=== PATIENT | male | born 1955 | race African-American/Black ===

== ENCOUNTER 2021-11-15 14:46 | Inpatient (IN) ==
[2021-11-15] MEDS ORDERED: AMIODARONE 150 MG/3 ML VIAL ONE ×2 (14:59→15:02)
[2021-11-15] MEDS ORDERED: MIDAZOLAM 10 MG/2 ML VIAL ONE (15:01)
[2021-11-15] MEDS ORDERED: MIDAZOLAM 50 MG/10 ML VIAL IV STA (15:05)
[2021-11-15] MEDS ORDERED: ROCURONIUM 50 MG/5 ML VIAL IV STA (15:05)
[2021-11-15] MEDS ORDERED: AMIODARONE INJ 450 MG in DEXTROSE 5% 241 ML IV SCH ×2 (15:10→21:00)
[2021-11-15] MEDS ORDERED: ETOMIDATE 20 MG/10 ML VIAL IV ONE ×2 (15:10→16:00)
[2021-11-15] MEDS ORDERED: AMIODARONE INJ 150 MG in DEXTROSE 5% 100 ML IV ONE ×3 (15:10→16:54)
[2021-11-15] MEDS ORDERED: ATROPINE 1 MG/10 ML SYRINGE ONE (15:14)
[2021-11-15] MEDS ORDERED: ATROPINE 1 MG/10 ML SYRINGE IV ONE ×3 (15:15→19:28)
[2021-11-15 15:31] LABS: Basophils # 0.1 10*3/uL (0.0-0.2); Basophils % 0.6 % (0.0-0.8); Eosinophils # 0.5 10*3/uL (0.0-0.87); Eosinophils % 3.7 % (0.00-10.9); Hematocrit 51.8 VOL% (42.0-52.0); Hemoglobin 16.5 GM/DL (14.0-18.0); Immature Granulocytes % 0.6 %; Immature Granulocytes Absolute 0.07 #; Lymphocytes # 4.8 10*3/uL (1.4-4.0); Lymphocytes % 38.4 % (21.2-54.2); Mean Corpuscular HGB Conc 31.9 GM/DL (32-36); Mean Corpuscular Volume 86.2 FL (87-102); Monocytes # 0.9 10*3/uL (0.11-0.8); Neutrophils % 49.7 % (38.7-73.9); Platelet Count 265 T/CUMM (130-400); Red Blood Count 6.01 MC/CUMM (3.8-5.5); Red Cell Distribution Width 16.7 % (9.3-17.3); White Blood Count 12.5 T/CUMM (4-12)
[2021-11-15] MEDS ORDERED: MAGNESIUM SULF RIDER 4 GM/100 ML PREMIX IV PRN (15:40)
[2021-11-15] MEDS ORDERED: MAGNESIUM SULF RIDER 2 GM/50 ML PREMIX IV PRN (15:40)
[2021-11-15] MEDS ORDERED: MAGNESIUM SULF RIDER 2 GM/50 ML PREMIX IV ONE (15:42)
[2021-11-15] MEDS ORDERED: POTASSIUM CHLORIDE RIDER 10 MEQ/100 ML PREMIX IV PRN (15:42)
[2021-11-15 15:44] LABS: Calcium 9.2 MG/DL (8.5-10.1); Osmolality,Calculated 281.4 MOS/KG (273-304); Potassium 3.9 MMOL/L (3.5-5.1)
[2021-11-15] MEDS ORDERED: ROCURONIUM 100 MG/10 ML VIAL IV ONE (16:00)
[2021-11-15] MEDS ORDERED: ENOXAPARIN 30 MG/0.3 ML SYRINGE ONE (16:14)
[2021-11-15] MEDS: SODIUM CHLORIDE 0.9% 1,000 ML IV SCH (16:15)
[2021-11-15] MEDS ORDERED: METOPROLOL TARTRATE 5 MG/5 ML VIAL IV ONE ×2 (16:16→18:31)
[2021-11-15] MEDS ORDERED: TIROFIBAN 5,000 MCG/100 ML PREMIX IV ONE (16:27)
[2021-11-15] MEDS: TIROFIBAN 5,000 MCG/100 ML PREMIX IV SCH ×3 (16:32→22:43)
[2021-11-15] MEDS ORDERED: SODIUM CHLORIDE 0.9% 1,000 ML IV STA (16:41)
[2021-11-15 16:46] LABS: Bacteria,Urine Occasional /HPF (Few); Hyaline Casts,Urine 14 /LPF (0-3); Mucus,Urine Occasional /LPF (Occasional); Squamous Epithelial Cell,Urine Occasional /HPF (0-10)
[2021-11-15 16:48] LABS: Bilirubin,Urine Negative (Negative); Blood, Urine Trace mg/dL (Negative); Glucose,Urine (UA) Negative (Negative); Ketones,Urine Negative (Negative); Nitrite,Urine Negative (Negative); Protein,Urine 100 mg/dL (Negative); Urine Appearance Clear (Clear); Urine Color Yellow (Yellow); Urine Specific Gravity 1.032 (1.001-1.035); Urine Urobilinogen 0.2 eU/dL (<2.0); Urine pH 5.5 (4.5-8.0)
[2021-11-15 17:02] LABS: Barbiturates Screen,Urine Negative (Negative); Benzodiazepines Screen,Urine Positive (Negative); Cannabinoid Screen,Urine Negative (Negative); Opiate Screen,Urine Negative (Negative); Phencyclidine Screen,Urine Negative (Negative)
[2021-11-15] MEDS ORDERED: ROCURONIUM 100 MG/10 ML VIAL IV STA (17:09)
[2021-11-15] MEDS: METOPROLOL TARTRATE 5 MG/5 ML VIAL IV SCH ×2 (18:35→18:43)
[2021-11-15 18:38] LABS: ABG Base Excess -4.2 MMOL/L (-2.5-2.5); ABG Oxygen Saturation 98.9 % (95-100); ABG TCO2 24.7 MMOL/L (23-27)
[2021-11-15 18:53] LABS: ABG PH 7.166 (7.35-7.45)
[2021-11-15 18:54] LABS: ABG PCO2 78.1 MM HG (35-48)
[2021-11-15] MEDS ORDERED: ALBUTEROL 2.5 MG/3 ML NEB RESP TX ONE (19:01)
[2021-11-15] MEDS ORDERED: MIDAZOLAM 100 MG in SODIUM CHLORIDE 0.9% 80 ML IV PRN (19:02)
[2021-11-15 19:49] LABS: ABG Base Excess -5.7 MMOL/L (-2.5-2.5); ABG HCO3 19.8 MMOL/L (20-26); ABG Oxygen Saturation 97.3 % (95-100); ABG PCO2 55.3 MM HG (35-48); ABG PH 7.232 (7.35-7.45); ABG TCO2 20.1 MMOL/L (23-27)
[2021-11-15] MEDS: METOPROLOL TARTRATE 25 MG TABLET PO SCH (20:48)
[2021-11-15] MEDS: ROSUVASTATIN 20 MG TABLET PO SCH (21:32)
[2021-11-15] MEDS ORDERED: NOREPINEPHRINE 8 MG in SODIUM CHLORIDE 0.9% 242 ML IV PRN (22:30)
[2021-11-16 03:25] LABS: ABG Base Excess -0.3 MMOL/L (-2.5-2.5); ABG HCO3 24.2 MMOL/L (20-26); ABG Oxygen Saturation 98.9 % (95-100); ABG PCO2 44.7 MM HG (35-48); ABG PH 7.365 (7.35-7.45); ABG TCO2 21.7 MMOL/L (23-27)
[2021-11-16 03:34] LABS: Basophils % 0.2 % (0.0-0.8); Eosinophils % 0.2 % (0.00-10.9); Hematocrit 47.2 VOL% (42.0-52.0); Hemoglobin 15.2 GM/DL (14.0-18.0); Immature Granulocytes Absolute 0.13 #; Lymphocytes % 15.5 % (21.2-54.2); Mean Corpuscular HGB Conc 32.2 GM/DL (32-36); Mean Corpuscular Volume 86.8 FL (87-102); Monocytes % 7.6 % (1.7-12.7); Neutrophils % 75.5 % (38.7-73.9); Platelet Count 243 T/CUMM (130-400); Red Blood Count 5.44 MC/CUMM (3.8-5.5); Red Cell Distribution Width 15.9 % (9.3-17.3); White Blood Count 13.1 T/CUMM (4-12)
[2021-11-16 03:53] LABS: Albumin 2.7 G/DL (3.4-5.0); Bilirubin,Total 0.4 MG/DL (0.20-1.00); Osmolality,Calculated 284.1 MOS/KG (273-304); Potassium 5.1 MMOL/L (3.5-5.1); Risk Ratio 3.09; Thyroid Stimulating Hormone 0.357 uIU/ml (0.358-3.74); Total Protein 5.7 G/DL (6.4-8.2); VLDL Cholesterol 23.2 MG/DL
[2021-11-16] MEDS: SODIUM CHLORIDE 0.9% 1,000 ML IV SCH ×3 (04:02→22:15)
[2021-11-16] MEDS: PANTOPRAZOLE 40 MG TABLET PO SCH (09:13)
[2021-11-16] MEDS: METOPROLOL TARTRATE 25 MG TABLET PO SCH ×2 (09:13→20:52)
[2021-11-16] MEDS: ASPIRIN EC 81 MG TABLET PO SCH (10:50)
[2021-11-16] MEDS ORDERED: ENOXAPARIN 40 MG/0.4 ML SYRINGE SUBCUT SCH (11:30)
[2021-11-16 12:23] LABS: Calcium 8.2 MG/DL (8.5-10.1); Osmolality,Calculated 281.4 MOS/KG (273-304); Potassium 4.4 MMOL/L (3.5-5.1)
[2021-11-16] MEDS: ENOXAPARIN 80 MG/0.8 ML SYRINGE SUBCUT SCH (15:13)
[2021-11-16] MEDS: AMIODARONE 200 MG TABLET PO SCH (20:52)
[2021-11-16] MEDS: ROSUVASTATIN 20 MG TABLET PO SCH (20:52)
[2021-11-17] MEDS: ENOXAPARIN 80 MG/0.8 ML SYRINGE SUBCUT SCH ×2 (01:37→14:30)
[2021-11-17 04:05] LABS: Arterial Base Excess iSTAT -1 MMOL/L (-2.5-2.5); Arterial Bicarbonate iSTAT 24.1 MMOL/L (20-26); Arterial O2 Saturation iSTAT 96 % (95-100); Arterial PCO2 iSTAT 42 MM HG (35-48); Arterial PO2 iSTAT 85 MM HG (80-95); Arterial Total CO2 iSTAT 25 MMO/L (23-27); Arterial pH iSTAT 7.371 (7.35-7.45)
[2021-11-17] MEDS ORDERED: ACETAMINOPHEN 325 MG TABLET PO PRN (04:16)
[2021-11-17 05:36] LABS: Basophils % 0.3 % (0.0-0.8); Eosinophils # 0.1 10*3/uL (0.0-0.87); Eosinophils % 0.5 % (0.00-10.9); Hematocrit 43.4 VOL% (42.0-52.0); Hemoglobin 13.8 GM/DL (14.0-18.0); Immature Granulocytes % 0.6 %; Immature Granulocytes Absolute 0.08 #; Lymphocytes # 1.6 10*3/uL (1.4-4.0); Lymphocytes % 11.5 % (21.2-54.2); Mean Corpuscular HGB Conc 31.8 GM/DL (32-36); Mean Corpuscular Volume 87.7 FL (87-102); Monocytes # 1.2 10*3/uL (0.11-0.8); Monocytes % 8.8 % (1.7-12.7); Neutrophils % 78.3 % (38.7-73.9); Platelet Count 210 T/CUMM (130-400); Red Blood Count 4.95 MC/CUMM (3.8-5.5); Red Cell Distribution Width 15.8 % (9.3-17.3); White Blood Count 13.6 T/CUMM (4-12)
[2021-11-17 05:57] LABS: Calcium 8.2 MG/DL (8.5-10.1); Osmolality,Calculated 283.1 MOS/KG (273-304)
[2021-11-17] MEDS ORDERED: DEXMEDETOMIDINE 200 MCG in SODIUM CHLORIDE 0.9% 48 ML IV PRN (08:00)
[2021-11-17] MEDS: AMIODARONE 200 MG TABLET PO SCH ×2 (09:10→20:19)
[2021-11-17] MEDS: ASPIRIN EC 81 MG TABLET PO SCH (09:10)
[2021-11-17] MEDS: METOPROLOL TARTRATE 50 MG TABLET PO SCH ×2 (09:10→20:19)
[2021-11-17] MEDS: PANTOPRAZOLE 40 MG TABLET PO SCH (09:10)
[2021-11-17] MEDS ORDERED: ALPRAZolam 0.5 MG TABLET PO PRN (09:17)
[2021-11-17] MEDS: SODIUM CHLORIDE 0.9% 1,000 ML IV SCH (11:35)
[2021-11-17] MEDS: ROSUVASTATIN 20 MG TABLET PO SCH (20:19)
[2021-11-18] MEDS: SODIUM CHLORIDE 0.9% 1,000 ML IV SCH ×2 (01:49)
[2021-11-18] MEDS: ENOXAPARIN 80 MG/0.8 ML SYRINGE SUBCUT SCH ×2 (03:43→13:20)
[2021-11-18 04:54] LABS: Basophils # 0.1 10*3/uL (0.0-0.2); Basophils % 0.5 % (0.0-0.8); Eosinophils # 0.2 10*3/uL (0.0-0.87); Eosinophils % 1.8 % (0.00-10.9); Hematocrit 39.9 VOL% (42.0-52.0); Hemoglobin 12.6 GM/DL (14.0-18.0); Immature Granulocytes % 0.7 %; Immature Granulocytes Absolute 0.09 #; Lymphocytes % 15.6 % (21.2-54.2); Mean Corpuscular HGB Conc 31.6 GM/DL (32-36); Mean Corpuscular Volume 88.5 FL (87-102); Mean Platelet Volume 10.4 FL (9.6-12.0); Monocytes # 1.2 10*3/uL (0.11-0.8); Monocytes % 9.3 % (1.7-12.7); Neutrophils % 72.1 % (38.7-73.9); Platelet Count 186 T/CUMM (130-400); Red Blood Count 4.51 MC/CUMM (3.8-5.5); Red Cell Distribution Width 15.7 % (9.3-17.3); White Blood Count 12.8 T/CUMM (4-12)
[2021-11-18 05:17] LABS: Calcium 8.4 MG/DL (8.5-10.1); Osmolality,Calculated 282.1 MOS/KG (273-304); Potassium 3.8 MMOL/L (3.5-5.1)
[2021-11-18] MEDS: METOPROLOL SUCCINATE XL 100 MG TABLET PO SCH (09:22)
[2021-11-18] MEDS: PANTOPRAZOLE 40 MG TABLET PO SCH (09:22)
[2021-11-18] MEDS: AMIODARONE 200 MG TABLET PO SCH (09:22)
[2021-11-18] MEDS: ASPIRIN EC 81 MG TABLET PO SCH (09:22)
[2021-11-18 09:47] LABS: Arterial Base Excess iSTAT 0 MMOL/L (-2.5-2.5); Arterial Bicarbonate iSTAT 26.4 MMOL/L (20-26); Arterial O2 Saturation iSTAT 96 % (95-100); Arterial PCO2 iSTAT 47 MM HG (35-48); Arterial PO2 iSTAT 85 MM HG (80-95); Arterial Total CO2 iSTAT 28 MMO/L (23-27); Arterial pH iSTAT 7.355 (7.35-7.45)
[2021-11-18] MEDS: amLODIPine 5 MG TABLET PO SCH (12:37)
[2021-11-18] MEDS: ROSUVASTATIN 20 MG TABLET PO SCH (20:45)
[2021-11-19] MEDS: ENOXAPARIN 80 MG/0.8 ML SYRINGE SUBCUT SCH ×2 (03:45→15:21)
[2021-11-19 05:06] LABS: Basophils # 0.1 10*3/uL (0.0-0.2); Basophils % 0.5 % (0.0-0.8); Eosinophils # 0.2 10*3/uL (0.0-0.87); Eosinophils % 1.9 % (0.00-10.9); Hematocrit 38.5 VOL% (42.0-52.0); Hemoglobin 12.1 GM/DL (14.0-18.0); Immature Granulocytes % 0.6 %; Immature Granulocytes Absolute 0.06 #; Lymphocytes # 1.8 10*3/uL (1.4-4.0); Lymphocytes % 16.6 % (21.2-54.2); Mean Corpuscular HGB Conc 31.4 GM/DL (32-36); Mean Corpuscular Volume 86.7 FL (87-102); Mean Platelet Volume 10.7 FL (9.6-12.0); Monocytes # 1.1 10*3/uL (0.11-0.8); Monocytes % 10.5 % (1.7-12.7); Neutrophils % 69.9 % (38.7-73.9); Platelet Count 203 T/CUMM (130-400); Red Blood Count 4.44 MC/CUMM (3.8-5.5); Red Cell Distribution Width 15.3 % (9.3-17.3); White Blood Count 10.8 T/CUMM (4-12)
[2021-11-19 05:24] LABS: Calcium 8.5 MG/DL (8.5-10.1); Osmolality,Calculated 279.3 MOS/KG (273-304); Potassium 3.6 MMOL/L (3.5-5.1)
[2021-11-19] MEDS: amLODIPine 5 MG TABLET PO SCH (08:38)
[2021-11-19] MEDS: METOPROLOL SUCCINATE XL 100 MG TABLET PO SCH (08:38)
[2021-11-19] MEDS: ASPIRIN EC 81 MG TABLET PO SCH (08:38)
[2021-11-19] MEDS: PANTOPRAZOLE 40 MG TABLET PO SCH (08:38)
[2021-11-19] MEDS: AMIODARONE 200 MG TABLET PO SCH (08:38)
[2021-11-19] MEDS ORDERED: ceFAZolin 1,000 MG VIAL IRRIG ONE (11:00)
[2021-11-19] MEDS ORDERED: DIAZEPAM 5 MG TABLET PO ONE (11:00)
[2021-11-19] MEDS ORDERED: diphenhydrAMINE CAP 25 MG CAPSULE PO ONE (11:00)
[2021-11-19] MEDS ORDERED: ceFAZolin 1,000 MG VIAL ONE (12:33)
[2021-11-19] MEDS ORDERED: TISSUE ADHESIVE 1 EACH APPLICATOR TOP ONE (12:33)
[2021-11-19] MEDS ORDERED: POTASSIUM CHLORIDE 20 MEQ TABLET PO ONE (13:00)
[2021-11-19] MEDS ORDERED: fentaNYL 100 MCG/2 ML VIAL ONE (14:11)
[2021-11-19] MEDS ORDERED: ETOMIDATE 20 MG/10 ML VIAL IV ONE (14:11)
[2021-11-19] MEDS ORDERED: LIDOCAINE 2% 5 ML VIAL ONE (14:11)
[2021-11-19] MEDS ORDERED: MIDAZOLAM 2 MG/2 ML VIAL ONE (14:11)
[2021-11-19] MEDS ORDERED: propofoL 200 MG/20 ML VIAL IV ONE (14:11)
[2021-11-19] MEDS ORDERED: SODIUM CHLORIDE 0.9% 100 ML IV ONE (14:12)
[2021-11-19] MEDS ORDERED: KETAMINE 500 MG/10 ML VIAL ONE (14:53)
[2021-11-19] MEDS: ROSUVASTATIN 20 MG TABLET PO SCH (20:10)
[2021-11-20] MEDS: ENOXAPARIN 80 MG/0.8 ML SYRINGE SUBCUT SCH (01:40)
[2021-11-20 06:00] LABS: Basophils # 0.1 10*3/uL (0.0-0.2); Basophils % 0.5 % (0.0-0.8); Eosinophils # 0.3 10*3/uL (0.0-0.87); Eosinophils % 2.8 % (0.00-10.9); Hematocrit 41.9 VOL% (42.0-52.0); Hemoglobin 13.2 GM/DL (14.0-18.0); Immature Granulocytes % 0.4 %; Immature Granulocytes Absolute 0.04 #; Lymphocytes % 22.1 % (21.2-54.2); Mean Corpuscular HGB Conc 31.5 GM/DL (32-36); Mean Corpuscular Volume 87.1 FL (87-102); Mean Platelet Volume 10.7 FL (9.6-12.0); Monocytes % 11.3 % (1.7-12.7); Neutrophils % 62.9 % (38.7-73.9); Platelet Count 231 T/CUMM (130-400); Red Blood Count 4.81 MC/CUMM (3.8-5.5); Red Cell Distribution Width 15.4 % (9.3-17.3); White Blood Count 9.1 T/CUMM (4-12)
[2021-11-20 06:12] LABS: Calcium 8.7 MG/DL (8.5-10.1); Osmolality,Calculated 281.1 MOS/KG (273-304); Potassium 3.9 MMOL/L (3.5-5.1)
[2021-11-20] MEDS: AMIODARONE 200 MG TABLET PO SCH (09:29)
[2021-11-20] MEDS: ASPIRIN EC 81 MG TABLET PO SCH (09:29)
[2021-11-20] MEDS: amLODIPine 5 MG TABLET PO SCH (09:29)
[2021-11-20] MEDS: PANTOPRAZOLE 40 MG TABLET PO SCH (09:29)
[2021-11-20] MEDS: METOPROLOL SUCCINATE XL 100 MG TABLET PO SCH (09:29)
[2021-11-20 12:12] VITALS: BP 139/91
== END 2021-11-20 15:59 | disposition home or self-care (01) | DRG 222 ==
LOC: N.ED 14:46 → N.CC 15:39 → N.TELEN 11-18 15:08
PROVIDERS: ADMIT Internal Medicine Cardiovascular Disease; ATTEND Internal Medicine Cardiovascular Disease
PROC: CLCCHCL (ICD-10-PCS; 2021-11-15 16:45)
PROC: CLDCICD (2021-11-19 11:45)